=== PATIENT | female | born 1955 | race Caucasian/White ===

== ENCOUNTER 2023-07-07 14:09 | Inpatient (IN) | payer OTHER, MEDICAID ==
[2023-07-07] MEDS: Acetaminophen 500 MG TAB PO SCH (17:14)
[2023-07-07] MEDS: fentaNYL 50 mcg/mL 1 mL Vial SLOW IVP PRN (17:15)
[2023-07-07] MEDS ORDERED: hydrALAZINE 20 MG/ML VIAL SLOW IVP PRN (18:05)
[2023-07-07] MEDS ORDERED: Ipratropium/Albuterol 3 ML NEB NEB PRN (18:05)
[2023-07-07] MEDS: Ondansetron PF 4 MG/2 ML Vial IVP PRN (18:53)
[2023-07-07 19:09] LABS: #Basophils 0.1 thou/uL (0.0-0.2); #Neutrophils 8.8 thou/uL (1.40-6.50); %Basophils 0.5 % (0.0-1.0); %Lymphocytes 4.4 % (21.0-51.0); %Monocytes 9.3 % (0.0-10.0); %Neutrophils 85.3 % (42.0-75.0); Hemoglobin 7.3 g/dL (12.0-16.0); Mean Corpuscular HGB CONC 29.2 g/dL (32.0-36.0); Mean Corpuscular Hemoglobin 21.5 pg (27.0-31.0); Mean Corpuscular Volume 73.7 fl (78.0-98.0); Platelet Count 133 10x3/uL (130-400); RBC Distribution Width 22.5 % (11.5-14.5); Red Blood Cell (RBC) Count 3.39 mill/uL (4.20-5.40); White Blood Cell (WBC) Count 10.3 10x3/uL (4.8-10.8)
[2023-07-07 19:45] LABS: Anion Gap 15 mmol/L (10-20); BUN (Urea Nitrogen) 24 mg/dL (9.8-20.1); Calc. Creatinine Clearance 42 mL/min (70-130); Calcium 8.4 mg/dL (7.8-10.44); Carbon Dioxide 19 mmol/L (23-31); Chloride 102 mmol/L (98-107); Estimated GFR 36; Glucose 167 mg/dL (80-115); Magnesium 1.7 mg/dL (1.6-2.6); Phosphorus 3.3 mg/dL (2.3-4.7); Potassium 3.8 mmol/L (3.5-5.1); Sodium 132 mmol/L (136-145)
[2023-07-07 19:51] LABS: Troponin I 0.018 ng/mL (< 0.028)
[2023-07-07] MEDS ORDERED: Hydrocortisone Sod Succ/PF 100 mg/2 ml Vial IVP SCH (21:00)
[2023-07-07] MEDS: Senokot S 8.6-50 MG TAB PO SCH (21:07)
[2023-07-07] MEDS: Rosuvastatin 20 MG TAB PO SCH (21:07)
[2023-07-07] MEDS: Famotidine/PF 20 mg/2ml Vial SLOW IVP SCH (21:08)
[2023-07-07] MEDS: Ranolazine 500 MG ER.TAB PO SCH (21:08)
[2023-07-07] MEDS: Hydroxychloroquine Sulfate 200 MG TAB PO SCH (22:09)
[2023-07-08] MEDS: Acetaminophen 500 MG TAB PO SCH ×4 (01:04→18:12)
[2023-07-08] MEDS: Hydrocortisone Sod Succ/PF 100 mg/2 ml Vial IVP SCH ×2 (01:04→09:27)
[2023-07-08 08:21] LABS: INR-International Normal Ratio 1.1; PTT 34.5 sec (22.9-36.1); Prothrombin Time 14.3 sec (12.0-14.7)
[2023-07-08 08:23] LABS: #Basophils 0.1 thou/uL (0.0-0.2); #Monocytes 0.7 thou/uL (0.11-0.59); #Neutrophils 8.7 thou/uL (1.40-6.50); %Basophils 0.5 % (0.0-1.0); %Lymphocytes 3.8 % (21.0-51.0); %Monocytes 6.7 % (0.0-10.0); %Neutrophils 88.6 % (42.0-75.0); Hematocrit 29.4 % (36.0-47.0); Mean Corpuscular HGB CONC 30.6 g/dL (32.0-36.0); Mean Corpuscular Hemoglobin 22.9 pg (27.0-31.0); Mean Corpuscular Volume 74.8 fl (78.0-98.0); Mean Platelet Volume 10.5 fL (7.4-10.4); Platelet Count 142 10x3/uL (130-400); RBC Distribution Width 23.3 % (11.5-14.5); Red Blood Cell (RBC) Count 3.93 mill/uL (4.20-5.40); White Blood Cell (WBC) Count 9.8 10x3/uL (4.8-10.8)
[2023-07-08 08:25] LABS: Anion Gap 13 mmol/L (10-20); BUN (Urea Nitrogen) 20 mg/dL (9.8-20.1); Calc. Creatinine Clearance 51 mL/min (70-130); Calcium 8.9 mg/dL (7.8-10.44); Carbon Dioxide 22 mmol/L (23-31); Chloride 106 mmol/L (98-107); Estimated GFR 46; Glucose 155 mg/dL (80-115); Potassium 4.3 mmol/L (3.5-5.1); Sodium 137 mmol/L (136-145)
[2023-07-08] MEDS: Senokot S 8.6-50 MG TAB PO SCH ×2 (09:27→20:57)
[2023-07-08] MEDS: Spironolactone 25 MG TAB PO SCH (09:27)
[2023-07-08] MEDS: Hydroxychloroquine Sulfate 200 MG TAB PO SCH ×2 (09:27→20:56)
[2023-07-08] MEDS: Ranolazine 500 MG ER.TAB PO SCH ×2 (09:27→20:55)
[2023-07-08] MEDS: DULoxetine 20 MG CAP PO SCH (09:27)
[2023-07-08] MEDS: Docusate 100 MG CAP PO SCH (09:27)
[2023-07-08] MEDS: Polyethylene Glycol 3350 17 GM Packet PO SCH (09:28)
[2023-07-08] MEDS ORDERED: Bisacodyl 5 MG TAB PO PRN (09:33)
[2023-07-08] MEDS ORDERED: Ipratropium/Albuterol 3 ML NEB NEB PRN (09:33)
[2023-07-08] MEDS ORDERED: Aspirin 81 mg Enteric Coated Tablet PO SCH (09:45)
[2023-07-08 10:02] LABS: Troponin I 0.085 ng/mL (< 0.028)
[2023-07-08] MEDS ORDERED: Furosemide 20 MG TAB PO SCH (12:00)
[2023-07-08] MEDS ORDERED: fentaNYL 50 mcg/mL 1 mL Vial SLOW IVP SCH (13:30)
[2023-07-08] MEDS ORDERED: Furosemide 40 MG/4 ML VIAL SLOW IVP SCH (13:45)
[2023-07-08 14:21] LABS: Troponin I 0.081 ng/mL (< 0.028)
[2023-07-08] MEDS: Famotidine/PF 20 mg/2ml Vial SLOW IVP SCH (20:56)
[2023-07-08] MEDS: Rosuvastatin 20 MG TAB PO SCH (20:56)
[2023-07-09] MEDS: Acetaminophen 500 MG TAB PO SCH ×4 (00:59→17:58)
[2023-07-09 04:46] LABS: #Basophils 0.1 thou/uL (0.0-0.2); #Monocytes 0.9 thou/uL (0.11-0.59); #Neutrophils 8.1 thou/uL (1.40-6.50); %Basophils 0.8 % (0.0-1.0); %Lymphocytes 9.7 % (21.0-51.0); %Monocytes 8.6 % (0.0-10.0); %Neutrophils 80.5 % (42.0-75.0); Hematocrit 32.5 % (36.0-47.0); Hemoglobin 9.7 g/dL (12.0-16.0); Mean Corpuscular HGB CONC 29.8 g/dL (32.0-36.0); Mean Corpuscular Hemoglobin 22.7 pg (27.0-31.0); Mean Corpuscular Volume 76.1 fl (78.0-98.0); Mean Platelet Volume 11.3 fL (7.4-10.4); Platelet Count 152 10x3/uL (130-400); RBC Distribution Width 23.5 % (11.5-14.5); Red Blood Cell (RBC) Count 4.27 mill/uL (4.20-5.40); White Blood Cell (WBC) Count 10.1 10x3/uL (4.8-10.8)
[2023-07-09 04:59] LABS: Anion Gap 15 mmol/L (10-20); BUN (Urea Nitrogen) 23 mg/dL (9.8-20.1); Calc. Creatinine Clearance 49 mL/min (70-130); Calcium 8.4 mg/dL (7.8-10.44); Carbon Dioxide 23 mmol/L (23-31); Chloride 107 mmol/L (98-107); Estimated GFR 44; Glucose 90 mg/dL (80-115); Magnesium 1.8 mg/dL (1.6-2.6); Phosphorus 2.8 mg/dL (2.3-4.7); Potassium 4.1 mmol/L (3.5-5.1); Sodium 141 mmol/L (136-145)
[2023-07-09 05:09] LABS: Troponin I 0.745 ng/mL (< 0.028)
[2023-07-09] MEDS: Furosemide 40 MG/4 ML VIAL SLOW IVP SCH ×2 (05:14→14:00)
[2023-07-09] MEDS: fentaNYL 50 mcg/mL 1 mL Vial SLOW IVP PRN ×2 (05:15→20:37)
[2023-07-09] MEDS: Aspirin Chewable 81 MG TAB PO SCH (09:49)
[2023-07-09] MEDS: Sacubitril 24MG/Valsartan 26 MG TAB PO SCH (09:49)
[2023-07-09] MEDS: Polyethylene Glycol 3350 17 GM Packet PO SCH (09:50)
[2023-07-09] MEDS: Senokot S 8.6-50 MG TAB PO SCH ×2 (09:50→20:27)
[2023-07-09] MEDS: Spironolactone 25 MG TAB PO SCH (09:51)
[2023-07-09] MEDS: DULoxetine 20 MG CAP PO SCH (09:51)
[2023-07-09] MEDS: Bisoprolol Fumarate 5 MG TAB PO SCH (09:51)
[2023-07-09] MEDS: Ranolazine 500 MG ER.TAB PO SCH ×2 (09:51→20:26)
[2023-07-09] MEDS: Hydroxychloroquine Sulfate 200 MG TAB PO SCH ×2 (09:51→20:26)
[2023-07-09] MEDS: Docusate 100 MG CAP PO SCH (09:51)
[2023-07-09] MEDS: Rosuvastatin 20 MG TAB PO SCH (20:26)
[2023-07-09] MEDS: Famotidine/PF 20 mg/2ml Vial SLOW IVP SCH (20:26)
[2023-07-10] MEDS: Acetaminophen 500 MG TAB PO SCH ×5 (00:20→20:36)
[2023-07-10] MEDS: Furosemide 40 MG/4 ML VIAL SLOW IVP SCH ×2 (05:12→14:28)
[2023-07-10 05:38] LABS: Troponin I 0.447 ng/mL (< 0.028)
[2023-07-10] MEDS: Polyethylene Glycol 3350 17 GM Packet PO SCH (09:00)
[2023-07-10] MEDS: Docusate 100 MG CAP PO SCH (09:01)
[2023-07-10] MEDS: Senokot S 8.6-50 MG TAB PO SCH ×3 (09:01→20:47)
[2023-07-10] MEDS: Spironolactone 25 MG TAB PO SCH (09:01)
[2023-07-10] MEDS: Hydroxychloroquine Sulfate 200 MG TAB PO SCH ×2 (09:02→20:35)
[2023-07-10] MEDS: DULoxetine 20 MG CAP PO SCH (09:02)
[2023-07-10] MEDS: Aspirin Chewable 81 MG TAB PO SCH (09:02)
[2023-07-10] MEDS: Ranolazine 500 MG ER.TAB PO SCH ×2 (09:02→20:35)
[2023-07-10] MEDS: Sacubitril 24MG/Valsartan 26 MG TAB PO SCH (09:02)
[2023-07-10] MEDS: Bisoprolol Fumarate 5 MG TAB PO SCH (09:02)
[2023-07-10] MEDS ORDERED: Magnesium 2 GM/50 ML(in water) 2 GM in Premix 1 BAG IVPB SCH (09:15)
[2023-07-10] MEDS: Famotidine/PF 20 mg/2ml Vial SLOW IVP SCH (20:35)
[2023-07-10] MEDS: Rosuvastatin 20 MG TAB PO SCH (20:35)
[2023-07-11] MEDS: Acetaminophen 500 MG TAB PO SCH ×3 (06:37→21:29)
[2023-07-11] MEDS: Furosemide 40 MG/4 ML VIAL SLOW IVP SCH ×2 (06:37→15:17)
[2023-07-11] MEDS: Spironolactone 25 MG TAB PO SCH (09:07)
[2023-07-11] MEDS: Aspirin Chewable 81 MG TAB PO SCH (09:07)
[2023-07-11] MEDS: Hydroxychloroquine Sulfate 200 MG TAB PO SCH ×2 (09:07→21:24)
[2023-07-11] MEDS: Ranolazine 500 MG ER.TAB PO SCH ×2 (09:07→21:23)
[2023-07-11] MEDS: Bisoprolol Fumarate 5 MG TAB PO SCH (09:07)
[2023-07-11] MEDS: DULoxetine 20 MG CAP PO SCH (09:07)
[2023-07-11] MEDS: Sacubitril 24MG/Valsartan 26 MG TAB PO SCH (09:12)
[2023-07-11] MEDS: Docusate 100 MG CAP PO SCH (09:13)
[2023-07-11] MEDS: Polyethylene Glycol 3350 17 GM Packet PO SCH (09:13)
[2023-07-11] MEDS: Senokot S 8.6-50 MG TAB PO SCH ×2 (09:13→21:23)
[2023-07-11] MEDS: Rosuvastatin 20 MG TAB PO SCH (21:24)
[2023-07-12] MEDS: Acetaminophen 500 MG TAB PO SCH ×4 (02:08→20:10)
[2023-07-12] MEDS: fentaNYL 50 mcg/mL 1 mL Vial SLOW IVP PRN ×2 (04:22→17:04)
[2023-07-12] MEDS: Furosemide 40 MG/4 ML VIAL SLOW IVP SCH (06:02)
[2023-07-12] MEDS: Ondansetron PF 4 MG/2 ML Vial IVP PRN (06:17)
[2023-07-12] MEDS: Hydroxychloroquine Sulfate 200 MG TAB PO SCH ×2 (08:22→20:11)
[2023-07-12] MEDS: Spironolactone 25 MG TAB PO SCH (08:23)
[2023-07-12] MEDS: DULoxetine 20 MG CAP PO SCH (08:23)
[2023-07-12] MEDS: Aspirin Chewable 81 MG TAB PO SCH (08:23)
[2023-07-12] MEDS: Ranolazine 500 MG ER.TAB PO SCH ×2 (08:23→20:11)
[2023-07-12] MEDS: Polyethylene Glycol 3350 17 GM Packet PO SCH (08:24)
[2023-07-12] MEDS: Bisoprolol Fumarate 5 MG TAB PO SCH (08:24)
[2023-07-12] MEDS: Senokot S 8.6-50 MG TAB PO SCH ×2 (08:25→20:13)
[2023-07-12] MEDS: Docusate 100 MG CAP PO SCH (08:25)
[2023-07-12] MEDS: Sacubitril 24MG/Valsartan 26 MG TAB PO SCH (08:25)
[2023-07-12 10:02] LABS: Hematocrit 23.6 % (36.0-47.0); Mean Corpuscular HGB CONC 33.9 g/dL (32.0-36.0); Mean Corpuscular Hemoglobin 30.5 pg (27.0-31.0); Mean Corpuscular Volume 90.1 fl (78.0-98.0); Mean Platelet Volume 10.6 fL (7.4-10.4); Platelet Count 144 10x3/uL (130-400); RBC Distribution Width 14.9 % (11.5-14.5); Red Blood Cell (RBC) Count 2.62 mill/uL (4.20-5.40); White Blood Cell (WBC) Count 5.1 10x3/uL (4.8-10.8)
[2023-07-12 10:16] LABS: Delete Auto Diff?? YES; Manual Diff?? YES
[2023-07-12 10:30] LABS: Anion Gap 12 mmol/L (10-20); BUN (Urea Nitrogen) 40 mg/dL (9.8-20.1); Calc. Creatinine Clearance 34 mL/min (70-130); Calcium 8.4 mg/dL (7.8-10.44); Carbon Dioxide 21 mmol/L (23-31); Chloride 104 mmol/L (98-107); Estimated GFR 33; Glucose 107 mg/dL (80-115); Phosphorus 3.3 mg/dL (2.3-4.7); Potassium 3.7 mmol/L (3.5-5.1); Sodium 133 mmol/L (136-145)
[2023-07-12 10:48] LABS: Band 11 % (5-11); CellaVision Operator ID LAB.GE; Large Platelets 5.1 % (0-5); Lymphocytes 7 % (21-51); Monocytes 8 % (0-10); Neutrophil 72 % (42-75); Nucleated RBC (Manual Ct) 1 % (0); Platelet Adequacy Comment Platelets Normal; Polychromasia SLIGHT = 2-3 cells HPF (0-2); Total Cell Count 99
[2023-07-12] MEDS: traMADol HCl 50 MG TAB PO SCH (15:30)
[2023-07-12] MEDS: Rosuvastatin 20 MG TAB PO SCH (20:19)
[2023-07-13] MEDS: traMADol HCl 50 MG TAB PO SCH ×4 (00:13→21:01)
[2023-07-13 04:36] LABS: #Basophils 0.1 thou/uL (0.0-0.2); #Neutrophils 6.7 thou/uL (1.40-6.50); %Basophils 0.9 % (0.0-1.0); %Lymphocytes 8.5 % (21.0-51.0); %Monocytes 11.9 % (0.0-10.0); %Neutrophils 78.4 % (42.0-75.0); Hematocrit 32.1 % (36.0-47.0); Hemoglobin 9.8 g/dL (12.0-16.0); Mean Corpuscular HGB CONC 30.5 g/dL (32.0-36.0); Mean Corpuscular Hemoglobin 22.7 pg (27.0-31.0); Mean Platelet Volume 10.5 fL (7.4-10.4); Platelet Count 148 10x3/uL (130-400); RBC Distribution Width 23.3 % (11.5-14.5); Red Blood Cell (RBC) Count 4.31 mill/uL (4.20-5.40); White Blood Cell (WBC) Count 8.6 10x3/uL (4.8-10.8)
[2023-07-13 04:48] LABS: Anion Gap 13 mmol/L (10-20); BUN (Urea Nitrogen) 30 mg/dL (9.8-20.1); Calc. Creatinine Clearance 46 mL/min (70-130); Calcium 9.2 mg/dL (7.8-10.44); Carbon Dioxide 28 mmol/L (23-31); Chloride 98 mmol/L (98-107); Estimated GFR 47; Glucose 95 mg/dL (80-115); Magnesium 1.9 mg/dL (1.6-2.6); Phosphorus 2.8 mg/dL (2.3-4.7); Sodium 135 mmol/L (136-145)
[2023-07-13 04:51] LABS: Mean Corpuscular Volume 74.5 fl (78.0-98.0)
[2023-07-13] MEDS: Acetaminophen 500 MG TAB PO SCH ×4 (05:22→18:26)
[2023-07-13] MEDS: Hydroxychloroquine Sulfate 200 MG TAB PO SCH ×2 (08:16→21:03)
[2023-07-13] MEDS: DULoxetine 20 MG CAP PO SCH (08:16)
[2023-07-13] MEDS: Spironolactone 25 MG TAB PO SCH (08:16)
[2023-07-13] MEDS: Aspirin Chewable 81 MG TAB PO SCH (08:16)
[2023-07-13] MEDS: Bisoprolol Fumarate 5 MG TAB PO SCH (08:17)
[2023-07-13] MEDS: Docusate 100 MG CAP PO SCH (08:17)
[2023-07-13] MEDS: Polyethylene Glycol 3350 17 GM Packet PO SCH (08:17)
[2023-07-13] MEDS: Senokot S 8.6-50 MG TAB PO SCH ×2 (08:17→21:02)
[2023-07-13] MEDS: Ranolazine 500 MG ER.TAB PO SCH ×2 (08:17→21:02)
[2023-07-13 12:10] VITALS: BMI 26.1
[2023-07-13] MEDS ORDERED: Acetaminophen 500 MG TAB ONE (13:40)
[2023-07-13] MEDS ORDERED: Sodium Chloride 0.9% 100 ML ONE (13:51)
[2023-07-13] MEDS ORDERED: CEFAZOLIN 2 GM VIAL ONE (13:51)
[2023-07-13] MEDS ORDERED: fentaNYL PF 100 MCG/2 ML SYRINGE ONE (13:58)
[2023-07-13] MEDS ORDERED: PHENYLEPHRINE-NS 100 MCG/ML 10 ML SYRINGE ONE (14:10)
[2023-07-13] MEDS ORDERED: Rocuronium Bromide 10 MG/ML (10ML VIAL) ONE (14:10)
[2023-07-13] MEDS ORDERED: Ondansetron PF 4 MG/2 ML Vial ONE (14:10)
[2023-07-13] MEDS ORDERED: PROPOFOL 200 MG/20 ML VIAL ONE (14:10)
[2023-07-13] MEDS ORDERED: ePHEDrine Sulfate 50 MG/10 ML VIAL ONE ×2 (14:10→15:31)
[2023-07-13] MEDS ORDERED: SUGAMMADEX SODIUM 200 MG/2 ML VIAL ONE (15:00)
[2023-07-13] MEDS ORDERED: Ondansetron HCl/PF 4 MG/2 ML Vial IVP PRN (15:46)
[2023-07-13] MEDS ORDERED: Promethazine HCl 25 MG/ML VIAL IM PRN (15:46)
[2023-07-13] MEDS: Rosuvastatin 20 MG TAB PO SCH (21:02)
[2023-07-13] MEDS: CEFAZOLIN 2 GM in Sodium Chloride 0.9% 100 ML IVPB SCH ×2 (21:03→22:50)
[2023-07-14] MEDS: Acetaminophen 500 MG TAB PO SCH ×4 (00:21→17:29)
[2023-07-14] MEDS: fentaNYL 50 mcg/mL 1 mL Vial SLOW IVP PRN (02:38)
[2023-07-14] MEDS: Ondansetron PF 4 MG/2 ML Vial IVP PRN ×2 (02:39→12:35)
[2023-07-14 04:57] LABS: #Basophils 0.1 thou/uL (0.0-0.2); #Monocytes 1.1 thou/uL (0.11-0.59); %Basophils 0.5 % (0.0-1.0); %Lymphocytes 6.4 % (21.0-51.0); %Monocytes 11.6 % (0.0-10.0); Hematocrit 28.3 % (36.0-47.0); Hemoglobin 8.4 g/dL (12.0-16.0); Mean Corpuscular HGB CONC 29.7 g/dL (32.0-36.0); Mean Corpuscular Hemoglobin 22.5 pg (27.0-31.0); Mean Corpuscular Volume 75.7 fl (78.0-98.0); Platelet Count 131 10x3/uL (130-400); RBC Distribution Width 23.4 % (11.5-14.5); Red Blood Cell (RBC) Count 3.74 mill/uL (4.20-5.40); White Blood Cell (WBC) Count 9.9 10x3/uL (4.8-10.8)
[2023-07-14] MEDS: traMADol HCl 50 MG TAB PO SCH ×3 (05:36→22:12)
[2023-07-14] MEDS: CEFAZOLIN 2 GM in Sodium Chloride 0.9% 100 ML IVPB SCH ×3 (05:37→13:50)
[2023-07-14 05:48] LABS: Anion Gap 18 mmol/L (10-20); BUN (Urea Nitrogen) 36 mg/dL (9.8-20.1); Calc. Creatinine Clearance 40 mL/min (70-130); Carbon Dioxide 20 mmol/L (23-31); Chloride 98 mmol/L (98-107); Estimated GFR 39; Glucose 164 mg/dL (80-115); Magnesium 1.7 mg/dL (1.6-2.6); Phosphorus 2.6 mg/dL (2.3-4.7); Potassium 3.9 mmol/L (3.5-5.1); Sodium 132 mmol/L (136-145)
[2023-07-14] MEDS ORDERED: Magnesium 2 GM/50 ML(in water) 2 GM in Premix 1 BAG IVPB SCH (09:00)
[2023-07-14] MEDS: DULoxetine 20 MG CAP PO SCH (09:47)
[2023-07-14] MEDS: Spironolactone 25 MG TAB PO SCH ×3 (09:47→13:28)
[2023-07-14] MEDS: Senokot S 8.6-50 MG TAB PO SCH ×2 (09:47→20:59)
[2023-07-14] MEDS: Hydroxychloroquine Sulfate 200 MG TAB PO SCH ×2 (09:47→20:59)
[2023-07-14] MEDS: Docusate 100 MG CAP PO SCH ×2 (09:47→09:57)
[2023-07-14] MEDS: Polyethylene Glycol 3350 17 GM Packet PO SCH (09:47)
[2023-07-14] MEDS: Aspirin Chewable 81 MG TAB PO SCH (09:47)
[2023-07-14] MEDS: Bisoprolol Fumarate 5 MG TAB PO SCH (09:47)
[2023-07-14] MEDS: Ranolazine 500 MG ER.TAB PO SCH ×2 (09:47→20:59)
[2023-07-14] MEDS: Furosemide 20 MG/2 ML VIAL SLOW IVP SCH ×2 (09:48→13:28)
[2023-07-14] MEDS ORDERED: Potassium Chloride 20 MEQ TAB PO SCH (12:00)
[2023-07-14] MEDS ORDERED: Hydrocortisone Sod Succ/PF 250 mg/2 ml Vial SLOW IVP SCH (16:30)
[2023-07-14] MEDS ORDERED: Hydrocortisone Sod Succ/PF 100 mg/2 ml Vial IVP SCH (16:30)
[2023-07-14] MEDS ORDERED: Lactated Ringer's 250 ML IV SCH (16:30)
[2023-07-14] MEDS: Rosuvastatin 20 MG TAB PO SCH (20:59)
[2023-07-15] MEDS: Acetaminophen 500 MG TAB PO SCH ×4 (00:43→19:53)
[2023-07-15 04:59] LABS: #Monocytes 0.9 thou/uL (0.11-0.59); #Neutrophils 9.1 thou/uL (1.40-6.50); %Basophils 0.3 % (0.0-1.0); %Lymphocytes 5.8 % (21.0-51.0); %Monocytes 8.7 % (0.0-10.0); %Neutrophils 84.5 % (42.0-75.0); Hematocrit 24.9 % (36.0-47.0); Hemoglobin 7.7 g/dL (12.0-16.0); Mean Corpuscular HGB CONC 30.9 g/dL (32.0-36.0); Mean Corpuscular Hemoglobin 23.1 pg (27.0-31.0); Mean Corpuscular Volume 74.8 fl (78.0-98.0); Mean Platelet Volume 11.6 fL (7.4-10.4); Platelet Count 147 10x3/uL (130-400); RBC Distribution Width 22.8 % (11.5-14.5); Red Blood Cell (RBC) Count 3.33 mill/uL (4.20-5.40); White Blood Cell (WBC) Count 10.7 10x3/uL (4.8-10.8)
[2023-07-15 05:31] LABS: Anion Gap 13 mmol/L (10-20); BUN (Urea Nitrogen) 25 mg/dL (9.8-20.1); Calc. Creatinine Clearance 59 mL/min (70-130); Calcium 8.3 mg/dL (7.8-10.44); Carbon Dioxide 27 mmol/L (23-31); Chloride 99 mmol/L (98-107); Estimated GFR 63; Glucose 137 mg/dL (80-115); Magnesium 2.3 mg/dL (1.6-2.6); Phosphorus 2.3 mg/dL (2.3-4.7); Potassium 4.6 mmol/L (3.5-5.1); Sodium 134 mmol/L (136-145)
[2023-07-15 05:43] LABS: Anisocytosis MODERATE=16-30 cells HPF (0-5); CellaVision Operator ID lab.sh2; Hypochromia MODERATE=16-30 cells HPF (0-5); Macrocytosis SLIGHT = 6-15 cells HPF (0-5); Microcytosis SLIGHT = 6-15 cells HPF (0-5); Ovalocytes SLIGHT = 2-5 cells HPF (0-1); Platelet Adequacy Comment Platelets Normal; Poikilocytosis SLIGHT = 6-15 cells HPF (0-5); Polychromasia SLIGHT = 2-3 cells HPF (0-2)
[2023-07-15] MEDS: traMADol HCl 50 MG TAB PO SCH ×3 (06:49→22:23)
[2023-07-15] MEDS ORDERED: Furosemide 40 MG TAB PO SCH (07:30)
[2023-07-15] MEDS: Furosemide 40 MG TAB PO SCH (09:11)
[2023-07-15] MEDS: DULoxetine 20 MG CAP PO SCH (09:42)
[2023-07-15] MEDS: Hydroxychloroquine Sulfate 200 MG TAB PO SCH ×2 (09:42→21:55)
[2023-07-15] MEDS: Polyethylene Glycol 3350 17 GM Packet PO SCH (09:43)
[2023-07-15] MEDS: Ranolazine 500 MG ER.TAB PO SCH ×2 (09:43→21:55)
[2023-07-15] MEDS: Senokot S 8.6-50 MG TAB PO SCH ×2 (09:43→21:56)
[2023-07-15] MEDS: Spironolactone 25 MG TAB PO SCH (09:43)
[2023-07-15] MEDS: Docusate 100 MG CAP PO SCH (09:43)
[2023-07-15] MEDS: Aspirin Chewable 81 MG TAB PO SCH ×2 (09:43→21:54)
[2023-07-15] MEDS: Bisoprolol Fumarate 5 MG TAB PO SCH (09:43)
[2023-07-15] MEDS: Rosuvastatin 20 MG TAB PO SCH (21:55)
[2023-07-16] MEDS: Acetaminophen 500 MG TAB PO SCH ×4 (00:44→17:10)
[2023-07-16 04:58] LABS: #Basophils 0.1 thou/uL (0.0-0.2); #Eosinphils 0.3 thou/uL (0.0-0.7); #Monocytes 0.7 thou/uL (0.11-0.59); #Neutrophils 6.1 thou/uL (1.40-6.50); %Basophils 0.6 % (0.0-1.0); %Eosinophils 3.7 % (0.0-10.0); %Lymphocytes 12.2 % (21.0-51.0); %Monocytes 8.1 % (0.0-10.0); %Neutrophils 74.9 % (42.0-75.0); Hematocrit 24.8 % (36.0-47.0); Hemoglobin 7.5 g/dL (12.0-16.0); Mean Corpuscular HGB CONC 30.2 g/dL (32.0-36.0); Mean Corpuscular Hemoglobin 22.6 pg (27.0-31.0); Mean Corpuscular Volume 74.7 fl (78.0-98.0); Mean Platelet Volume 11.4 fL (7.4-10.4); Platelet Count 171 10x3/uL (130-400); Red Blood Cell (RBC) Count 3.32 mill/uL (4.20-5.40); White Blood Cell (WBC) Count 8.1 10x3/uL (4.8-10.8)
[2023-07-16] MEDS: traMADol HCl 50 MG TAB PO SCH ×3 (06:38→22:12)
[2023-07-16] MEDS: Bisoprolol Fumarate 5 MG TAB PO SCH (08:42)
[2023-07-16] MEDS: Senokot S 8.6-50 MG TAB PO SCH ×2 (08:43→22:11)
[2023-07-16] MEDS: Polyethylene Glycol 3350 17 GM Packet PO SCH (08:43)
[2023-07-16] MEDS: Docusate 100 MG CAP PO SCH (08:43)
[2023-07-16] MEDS: Furosemide 40 MG TAB PO SCH (08:43)
[2023-07-16] MEDS: Spironolactone 25 MG TAB PO SCH (08:44)
[2023-07-16] MEDS: Hydroxychloroquine Sulfate 200 MG TAB PO SCH ×2 (08:51→22:12)
[2023-07-16] MEDS: Ranolazine 500 MG ER.TAB PO SCH ×2 (08:51→22:36)
[2023-07-16] MEDS: Aspirin Chewable 81 MG TAB PO SCH ×3 (08:51→22:12)
[2023-07-16] MEDS: DULoxetine 20 MG CAP PO SCH (08:51)
[2023-07-16] MEDS: CeleCOXIB 100 MG CAP PO PRN (15:57)
[2023-07-16] MEDS: Rosuvastatin 20 MG TAB PO SCH (22:11)
[2023-07-17] MEDS: Acetaminophen 500 MG TAB PO SCH ×5 (01:18→23:30)
[2023-07-17] MEDS: traMADol HCl 50 MG TAB PO SCH ×3 (05:44→21:56)
[2023-07-17] MEDS: Furosemide 40 MG TAB PO SCH (08:15)
[2023-07-17] MEDS: DULoxetine 20 MG CAP PO SCH (08:15)
[2023-07-17] MEDS: Hydroxychloroquine Sulfate 200 MG TAB PO SCH ×2 (08:15→21:49)
[2023-07-17] MEDS: Ranolazine 500 MG ER.TAB PO SCH ×2 (08:15→21:49)
[2023-07-17] MEDS: Aspirin Chewable 81 MG TAB PO SCH ×2 (08:15→21:49)
[2023-07-17] MEDS: Bisoprolol Fumarate 5 MG TAB PO SCH (08:16)
[2023-07-17] MEDS: Docusate 100 MG CAP PO SCH (08:16)
[2023-07-17] MEDS: Polyethylene Glycol 3350 17 GM Packet PO SCH (08:16)
[2023-07-17] MEDS: Spironolactone 25 MG TAB PO SCH (08:16)
[2023-07-17] MEDS: Senokot S 8.6-50 MG TAB PO SCH ×2 (08:16→21:57)
[2023-07-17 10:56] LABS: #Basophils 0.1 thou/uL (0.0-0.2); #Eosinphils 0.1 thou/uL (0.0-0.7); #Monocytes 0.6 thou/uL (0.11-0.59); #Neutrophils 6.1 thou/uL (1.40-6.50); %Basophils 1.2 % (0.0-1.0); %Eosinophils 1.1 % (0.0-10.0); %Lymphocytes 8.3 % (21.0-51.0); %Monocytes 7.7 % (0.0-10.0); %Neutrophils 81.3 % (42.0-75.0); Hematocrit 28.4 % (36.0-47.0); Hemoglobin 8.5 g/dL (12.0-16.0); Mean Corpuscular HGB CONC 29.9 g/dL (32.0-36.0); Mean Corpuscular Hemoglobin 22.8 pg (27.0-31.0); Mean Corpuscular Volume 76.1 fl (78.0-98.0); Mean Platelet Volume 11.1 fL (7.4-10.4); Platelet Count 223 10x3/uL (130-400); RBC Distribution Width 22.7 % (11.5-14.5); Red Blood Cell (RBC) Count 3.73 mill/uL (4.20-5.40); White Blood Cell (WBC) Count 7.5 10x3/uL (4.8-10.8)
[2023-07-17] MEDS: Ondansetron PF 4 MG/2 ML Vial IVP PRN (11:16)
[2023-07-17 14:17] LABS: #Basophils 0.1 thou/uL (0.0-0.2); #Eosinphils 0.1 thou/uL (0.0-0.7); #Monocytes 0.6 thou/uL (0.11-0.59); #Neutrophils 7.8 thou/uL (1.40-6.50); %Eosinophils 0.9 % (0.0-10.0); %Monocytes 6.3 % (0.0-10.0); %Neutrophils 84.3 % (42.0-75.0); Hematocrit 27.7 % (36.0-47.0); Hemoglobin 8.2 g/dL (12.0-16.0); Mean Corpuscular HGB CONC 29.6 g/dL (32.0-36.0); Mean Corpuscular Hemoglobin 22.8 pg (27.0-31.0); Mean Corpuscular Volume 76.9 fl (78.0-98.0); Mean Platelet Volume 10.1 fL (7.4-10.4); Platelet Count 241 10x3/uL (130-400); RBC Distribution Width 22.5 % (11.5-14.5); White Blood Cell (WBC) Count 9.2 10x3/uL (4.8-10.8)
[2023-07-17] MEDS: CeleCOXIB 100 MG CAP PO PRN (17:31)
[2023-07-17] MEDS: Rosuvastatin 20 MG TAB PO SCH (21:49)
[2023-07-18] MEDS: traMADol HCl 50 MG TAB PO SCH ×2 (06:30→14:08)
[2023-07-18] MEDS: Acetaminophen 500 MG TAB PO SCH ×2 (06:31→12:51)
[2023-07-18] MEDS: DULoxetine 20 MG CAP PO SCH (09:04)
[2023-07-18] MEDS: Aspirin Chewable 81 MG TAB PO SCH (09:04)
[2023-07-18] MEDS: Hydroxychloroquine Sulfate 200 MG TAB PO SCH (09:04)
[2023-07-18] MEDS: Ranolazine 500 MG ER.TAB PO SCH (09:04)
[2023-07-18] MEDS: Docusate 100 MG CAP PO SCH (09:09)
[2023-07-18] MEDS: Furosemide 40 MG TAB PO SCH (09:09)
[2023-07-18] MEDS: Bisoprolol Fumarate 5 MG TAB PO SCH (09:09)
[2023-07-18] MEDS: Spironolactone 25 MG TAB PO SCH (09:10)
[2023-07-18] MEDS: Polyethylene Glycol 3350 17 GM Packet PO SCH (09:10)
[2023-07-18] MEDS: Senokot S 8.6-50 MG TAB PO SCH (09:10)
[2023-07-18] MEDS: CeleCOXIB 100 MG CAP PO PRN (12:50)
[2023-07-18 17:08] VITALS: BP 105/55; TEMP 97.8
[2023-07-18] MEDS ORDERED: Hydroxychloroquine Sulfate 200 MG TAB PO SCH (21:00)
[2023-07-19] MEDS ORDERED: Bisoprolol Fumarate 5 MG TAB PO SCH (09:00)
== END 2023-07-18 17:31 | disposition swing bed (61) | DRG 521 ==
LOC: SJJU 15:36 → 2NO 07-08 16:32
PROVIDERS: ADMIT Specialist; ATTEND Specialist
PROC: 30233N1 Transfusion of Nonautologous Red Blood Cells into Peripheral Vein, Percutaneous Approach (ICD-10-PCS; 2023-07-08)
PROC: 0SRR0JZ Replacement of Right Hip Joint, Femoral Surface with Synthetic Substitute, Open Approach (ICD-10-PCS; principal; 2023-07-13)
PROC: 0SC90ZZ Extirpation of Matter from Right Hip Joint, Open Approach (ICD-10-PCS; 2023-07-13)
DX: S72.001A Fracture of unspecified part of neck of right femur, initial encounter for closed fracture (principal); I21.4 Non-ST elevation (NSTEMI) myocardial infarction; I50.43 Acute on chronic combined systolic (congestive) and diastolic (congestive) heart failure; J96.01 Acute respiratory failure with hypoxia; I13.0 Hypertensive heart and chronic kidney disease with heart failure and stage 1 through stage 4 chronic kidney disease, or unspecified chronic kidney disease; N17.9 Acute kidney failure, unspecified; I25.110 Atherosclerotic heart disease of native coronary artery with unstable angina pectoris; I47.20 Ventricular tachycardia, unspecified; W18.30XA Fall on same level, unspecified, initial encounter; E11.22 Type 2 diabetes mellitus with diabetic chronic kidney disease; M06.9 Rheumatoid arthritis, unspecified; N18.9 Chronic kidney disease, unspecified; D63.1 Anemia in chronic kidney disease; Z79.82 Long term (current) use of aspirin; Z79.899 Other long term (current) drug therapy; Z95.1 Presence of aortocoronary bypass graft; Z90.710 Acquired absence of both cervix and uterus; Z88.5 Allergy status to narcotic agent; E11.42 Type 2 diabetes mellitus with diabetic polyneuropathy; I25.5 Ischemic cardiomyopathy; Z95.810 Presence of automatic (implantable) cardiac defibrillator
CPT/HCPCS: 36415; 36416; 36430; 71045; 72170; 80048; 82533; 83735; 83880; 84100; 84484; 85025; 85610; 85730; 86850; 86900; 86901; 93005; 93010; 93306; 93880; C1713; C1776; J1650; J1720; J1940; J2405; J2704; J3010; J3475; J3490; J7120; P9016; P9045; S0028

== ENCOUNTER 2023-08-12 02:49 | Inpatient (IN) | payer OTHER, MEDICAID ==
[2023-08-12] MEDS ORDERED: Ondansetron ODT 4 MG TAB SL PRN (03:30)
[2023-08-12] MEDS ORDERED: Ondansetron PF 4 MG/2 ML Vial IVP PRN ×2 (03:30→03:33)
[2023-08-12] MEDS ORDERED: Nitroglycerin 0.4 MG TAB (25 Tab Bottle) SL PRN ×2 (03:33→04:15)
[2023-08-12] MEDS ORDERED: traMADol HCl 50 MG TAB PO PRN (03:33)
[2023-08-12] MEDS ORDERED: Ipratropium/Albuterol 3 ML NEB NEB PRN (03:33)
[2023-08-12] MEDS ORDERED: Bisacodyl 5 MG TAB PO PRN (03:33)
[2023-08-12 04:23] VITALS: BMI 22.9
[2023-08-12 06:24] LABS: Troponin I 0.223 ng/mL (< 0.028)
[2023-08-12 07:35] LABS: #Basophils 0.1 thou/uL (0.0-0.2); #Monocytes 0.8 thou/uL (0.11-0.59); #Neutrophils 4.9 thou/uL (1.40-6.50); %Basophils 1.3 % (0.0-1.0); %Lymphocytes 7.3 % (21.0-51.0); %Monocytes 13.2 % (0.0-10.0); %Neutrophils 77.9 % (42.0-75.0); Hematocrit 26.3 % (36.0-47.0); Hemoglobin 7.9 g/dL (12.0-16.0); Mean Corpuscular Hemoglobin 24.8 pg (27.0-31.0); Mean Corpuscular Volume 82.7 fl (78.0-98.0); Platelet Count 195 10x3/uL (130-400); RBC Distribution Width 24.8 % (11.5-14.5); Red Blood Cell (RBC) Count 3.18 mill/uL (4.20-5.40); White Blood Cell (WBC) Count 6.3 10x3/uL (4.8-10.8)
[2023-08-12 07:47] LABS: Anion Gap 13 mmol/L (10-20); BUN (Urea Nitrogen) 22 mg/dL (9.8-20.1); Calc. Creatinine Clearance 47 mL/min (70-130); Calcium 8.6 mg/dL (7.8-10.44); Carbon Dioxide 22 mmol/L (23-31); Chloride 101 mmol/L (98-107); Estimated GFR 56; Glucose 84 mg/dL (80-115); Potassium 4.2 mmol/L (3.5-5.1); Sodium 132 mmol/L (136-145)
[2023-08-12] MEDS: Pantoprazole 40 MG VIAL IVP SCH (08:24)
[2023-08-12] MEDS: Cefepime 1 GM in Sodium Chloride 0.9% 100 ML IVPB SCH ×2 (08:24→19:34)
[2023-08-12] MEDS: Bisoprolol Fumarate 5 MG TAB PO SCH (08:25)
[2023-08-12] MEDS: Leflunomide 10 mg Tablet PO SCH (08:25)
[2023-08-12] MEDS: Hydroxychloroquine Sulfate 200 MG TAB PO SCH ×2 (08:25→19:45)
[2023-08-12] MEDS: DULoxetine 20 MG CAP PO SCH (08:25)
[2023-08-12] MEDS: Potassium Chloride 20 MEQ TAB PO SCH (08:25)
[2023-08-12] MEDS: Ranolazine 500 MG ER.TAB PO SCH ×2 (08:25→19:46)
[2023-08-12] MEDS: Aspirin Chewable 81 MG TAB PO SCH (08:25)
[2023-08-12] MEDS: Ezetimibe 10 MG TAB PO SCH (08:25)
[2023-08-12] MEDS: Senokot S 8.6-50 MG TAB PO SCH ×2 (08:25→19:47)
[2023-08-12] MEDS ORDERED: CICLOPIROX OLAMINE TOP SCH (09:00)
[2023-08-12] MEDS ORDERED: Cefepime 2 GM VIAL IVPB SCH (09:00)
[2023-08-12] MEDS ORDERED: Furosemide 40 MG/4 ML VIAL SLOW IVP SCH (09:45)
[2023-08-12] MEDS: Clobetasol 0.05% Cream 15 gm Tube TOP SCH ×2 (10:14→22:18)
[2023-08-12] MEDS ORDERED: Empagliflozin 10 MG TAB PO SCH (13:00)
[2023-08-12 13:44] LABS: Troponin I 0.264 ng/mL (< 0.028)
[2023-08-12] MEDS ORDERED: Iron, Sodium Ferric Gluconate 250 MG in Sodium Chloride 0.9% 250 ML 250 ML IVPB SCH (14:00)
[2023-08-12] MEDS ORDERED: Sodium Chloride 0.9% 500 ML IV SCH (16:30)
[2023-08-12] MEDS: Rosuvastatin 20 MG TAB PO SCH (19:47)
[2023-08-13 05:31] LABS: #Basophils 0.1 thou/uL (0.0-0.2); #Monocytes 0.9 thou/uL (0.11-0.59); %Basophils 1.8 % (0.0-1.0); %Eosinophils 0.6 % (0.0-10.0); %Lymphocytes 19.4 % (21.0-51.0); %Monocytes 18.6 % (0.0-10.0); %Neutrophils 59.4 % (42.0-75.0); Hematocrit 28.9 % (36.0-47.0); Hemoglobin 8.5 g/dL (12.0-16.0); Mean Corpuscular HGB CONC 29.4 g/dL (32.0-36.0); Mean Corpuscular Hemoglobin 24.1 pg (27.0-31.0); Mean Corpuscular Volume 82.1 fl (78.0-98.0); Mean Platelet Volume 10.4 fL (7.4-10.4); Platelet Count 192 10x3/uL (130-400); RBC Distribution Width 24.6 % (11.5-14.5); Red Blood Cell (RBC) Count 3.52 mill/uL (4.20-5.40); White Blood Cell (WBC) Count 5.1 10x3/uL (4.8-10.8)
[2023-08-13 05:51] LABS: Anion Gap 14 mmol/L (10-20); BUN (Urea Nitrogen) 22 mg/dL (9.8-20.1); Calc. Creatinine Clearance 53 mL/min (70-130); Calcium 8.3 mg/dL (7.8-10.44); Carbon Dioxide 18 mmol/L (23-31); Chloride 105 mmol/L (98-107); Estimated GFR 57; Glucose 71 mg/dL (80-115); Potassium 3.9 mmol/L (3.5-5.1); Sodium 133 mmol/L (136-145)
[2023-08-13] MEDS: Ranolazine 500 MG ER.TAB PO SCH ×2 (08:27→19:56)
[2023-08-13] MEDS: DULoxetine 20 MG CAP PO SCH (08:27)
[2023-08-13] MEDS: Empagliflozin 10 MG TAB PO SCH (08:27)
[2023-08-13] MEDS: Aspirin Chewable 81 MG TAB PO SCH (08:28)
[2023-08-13] MEDS: Leflunomide 10 mg Tablet PO SCH (08:28)
[2023-08-13] MEDS: Potassium Chloride 20 MEQ TAB PO SCH (08:28)
[2023-08-13] MEDS: Senokot S 8.6-50 MG TAB PO SCH ×2 (08:28→08:32)
[2023-08-13] MEDS: Prasugrel 10 MG TAB PO SCH (08:28)
[2023-08-13] MEDS: Hydroxychloroquine Sulfate 200 MG TAB PO SCH ×2 (08:28→19:56)
[2023-08-13] MEDS: Ezetimibe 10 MG TAB PO SCH (08:29)
[2023-08-13] MEDS: Bisoprolol Fumarate 5 MG TAB PO SCH (08:29)
[2023-08-13] MEDS: Cefepime 1 GM in Sodium Chloride 0.9% 100 ML IVPB SCH ×2 (08:30→19:55)
[2023-08-13] MEDS: Clobetasol 0.05% Cream 15 gm Tube TOP SCH ×2 (08:56→20:06)
[2023-08-13] MEDS: Pantoprazole 40 MG VIAL IVP SCH (09:13)
[2023-08-13] MEDS: Acetaminophen 325 MG TAB PO PRN (19:55)
[2023-08-13] MEDS: Rosuvastatin 20 MG TAB PO SCH (19:56)
[2023-08-14] MEDS: Acetaminophen 325 MG TAB PO PRN ×2 (04:45→22:26)
[2023-08-14] MEDS: Cefepime 1 GM in Sodium Chloride 0.9% 100 ML IVPB SCH ×2 (08:32→21:15)
[2023-08-14] MEDS: Pantoprazole 40 MG VIAL IVP SCH (08:32)
[2023-08-14] MEDS: Clobetasol 0.05% Cream 15 gm Tube TOP SCH ×2 (08:35→20:45)
[2023-08-14] MEDS: Prasugrel 10 MG TAB PO SCH (08:37)
[2023-08-14] MEDS: Aspirin Chewable 81 MG TAB PO SCH (08:38)
[2023-08-14] MEDS: DULoxetine 20 MG CAP PO SCH (08:38)
[2023-08-14] MEDS: Hydroxychloroquine Sulfate 200 MG TAB PO SCH ×2 (08:38→21:15)
[2023-08-14] MEDS: Bisoprolol Fumarate 5 MG TAB PO SCH (08:38)
[2023-08-14] MEDS: Potassium Chloride 20 MEQ TAB PO SCH (08:38)
[2023-08-14] MEDS: Leflunomide 10 mg Tablet PO SCH (08:38)
[2023-08-14] MEDS: Ezetimibe 10 MG TAB PO SCH (08:38)
[2023-08-14] MEDS: Ranolazine 500 MG ER.TAB PO SCH ×2 (08:39→21:15)
[2023-08-14] MEDS: Empagliflozin 10 MG TAB PO SCH (08:39)
[2023-08-14] MEDS ORDERED: Diphenoxylate HCl/Atropine Tablet PO SCH (18:30)
[2023-08-14] MEDS: Rosuvastatin 20 MG TAB PO SCH (21:15)
[2023-08-14] MEDS ORDERED: guaiFENesin ER 600 MG TAB PO PRN (22:30)
[2023-08-15 06:10] LABS: #Basophils 0.1 thou/uL (0.0-0.2); #Eosinphils 0.1 thou/uL (0.0-0.7); #Monocytes 0.8 thou/uL (0.11-0.59); %Basophils 1.3 % (0.0-1.0); %Lymphocytes 19.8 % (21.0-51.0); %Monocytes 13.1 % (0.0-10.0); %Neutrophils 64.3 % (42.0-75.0); Hematocrit 29.9 % (36.0-47.0); Hemoglobin 8.6 g/dL (12.0-16.0); Mean Corpuscular HGB CONC 28.8 g/dL (32.0-36.0); Mean Corpuscular Volume 83.3 fl (78.0-98.0); Mean Platelet Volume 9.7 fL (7.4-10.4); Platelet Count 164 10x3/uL (130-400); RBC Distribution Width 24.7 % (11.5-14.5); Red Blood Cell (RBC) Count 3.59 mill/uL (4.20-5.40); White Blood Cell (WBC) Count 6.3 10x3/uL (4.8-10.8)
[2023-08-15 06:38] LABS: Anion Gap 10 mmol/L (10-20); BUN (Urea Nitrogen) 12 mg/dL (9.8-20.1); Calc. Creatinine Clearance 65 mL/min (70-130); Calcium 8.4 mg/dL (7.8-10.44); Carbon Dioxide 20 mmol/L (23-31); Chloride 109 mmol/L (98-107); Estimated GFR 74; Glucose 74 mg/dL (80-115); Sodium 135 mmol/L (136-145)
[2023-08-15] MEDS: Cefepime 1 GM in Sodium Chloride 0.9% 100 ML IVPB SCH (09:14)
[2023-08-15] MEDS: Pantoprazole 40 MG VIAL IVP SCH (09:15)
[2023-08-15] MEDS: DULoxetine 20 MG CAP PO SCH (09:20)
[2023-08-15] MEDS: Aspirin Chewable 81 MG TAB PO SCH (09:20)
[2023-08-15] MEDS: Prasugrel 10 MG TAB PO SCH (09:20)
[2023-08-15] MEDS: Ranolazine 500 MG ER.TAB PO SCH (09:21)
[2023-08-15] MEDS: Bisoprolol Fumarate 5 MG TAB PO SCH (09:21)
[2023-08-15] MEDS: Empagliflozin 10 MG TAB PO SCH (09:21)
[2023-08-15] MEDS: Ezetimibe 10 MG TAB PO SCH (09:21)
[2023-08-15] MEDS: Hydroxychloroquine Sulfate 200 MG TAB PO SCH (09:21)
[2023-08-15] MEDS: Leflunomide 10 mg Tablet PO SCH (09:21)
[2023-08-15] MEDS: Clobetasol 0.05% Cream 15 gm Tube TOP SCH (09:30)
[2023-08-15] MEDS ORDERED: Vancomycin HCl 125 MG Capsule PO SCH (12:00)
[2023-08-15 12:09] VITALS: BP 111/59; TEMP 98
== END 2023-08-15 15:02 | disposition swing bed (61) | DRG 372 ==
LOC: 2SW 02:49 → INTOOBSV 02:49 → OBSVTOIN 08-15 07:12
PROVIDERS: ADMIT Internal Medicine; ATTEND Internal Medicine
DX: A04.72 Enterocolitis due to Clostridium difficile, not specified as recurrent (principal); I50.42 Chronic combined systolic (congestive) and diastolic (congestive) heart failure; N17.9 Acute kidney failure, unspecified; T84.51XA Infection and inflammatory reaction due to internal right hip prosthesis, initial encounter; R07.89 Other chest pain; Z96.641 Presence of right artificial hip joint; K21.9 Gastro-esophageal reflux disease without esophagitis; K59.09 Other constipation; M06.9 Rheumatoid arthritis, unspecified; D64.9 Anemia, unspecified; I25.10 Atherosclerotic heart disease of native coronary artery without angina pectoris; R53.1 Weakness; I11.0 Hypertensive heart disease with heart failure; I25.5 Ischemic cardiomyopathy; Z88.8 Allergy status to other drugs, medicaments and biological substances; Z88.5 Allergy status to narcotic agent; Z79.82 Long term (current) use of aspirin; Z79.899 Other long term (current) drug therapy; Z87.891 Personal history of nicotine dependence; Z95.5 Presence of coronary angioplasty implant and graft; Z95.810 Presence of automatic (implantable) cardiac defibrillator; Z90.49 Acquired absence of other specified parts of digestive tract; Z90.710 Acquired absence of both cervix and uterus; Z98.890 Other specified postprocedural states
CPT/HCPCS: 36415; 80048; 82728; 85025; 86850; 86900; 86901; 87324; 87449; 87493; 96372; 96374; 96375; 96376; 97139; C9113; G0378; J0692; J1650; J1940; J2405; J2916; J3490; J7030; J7050